=== PATIENT | male | born 1955 | race African-American/Black ===

== ENCOUNTER 2020-02-11 22:41 | Emergency (ER) | payer OTHER ==
[~2020-02-11] VITALS: Ht 175.3 cm; Wt 103.4 kg
[2020-02-11 22:45] VITALS: BP 153/104
[2020-02-11] MEDS ORDERED: ASA81BEC PO (22:55)
[2020-02-11] MEDS ORDERED: NORVASC 2.5 MG2.5 M1 PO (22:55)
[2020-02-11] MEDS ORDERED: COZAAR 25 MG TA25 M2 PO (22:56)
[2020-02-11] MEDS ORDERED: METFORMIN HCL500 M3 PO (22:56)
[2020-02-11] MEDS ORDERED: ROSUVASTATIN CA10 MG PO (22:56)
[2020-02-11] MEDS ORDERED: MELOXICAM7.5 MG PO (22:57)
[2020-02-11] MEDS ORDERED: NAPROSYN500 MG PO (23:34)
== END 2020-02-11 23:51 | disposition home or self-care (01) ==
LOC: ER 22:41
DX: S83.91XA Sprain of unspecified site of right knee, initial encounter (principal); M25.461 Effusion, right knee; Z88.0 Allergy status to penicillin; Z79.899 Other long term (current) drug therapy; Z79.82 Long term (current) use of aspirin; W10.9XXA Fall (on) (from) unspecified stairs and steps, initial encounter; Y93.89 Activity, other specified; Y92.89 Other specified places as the place of occurrence of the external cause; Y99.8 Other external cause status